=== PATIENT | female | born 1985 | race African-American/Black ===

== ENCOUNTER 2017-05-22 21:08 | Emergency (ER) | payer OTHER ==
[2017-05-23] MEDS: SOD CHLORIDE 0.9% 1,000 ML IV (00:28)
[2017-05-23 00:29] LABS: ADD MAN DIFF? NO
[2017-05-23 00:36] LABS: WHITE BLOOD COUNT 7.2 10^3/ul (4.8-10.8)
[2017-05-23 00:36] LABS: BASOPHILS % 0.3 % (0.0-2.0); HEMATOCRIT 44.4 % (37.0-47.0); HEMOGLOBIN 14.6 g/dl (12.0-16.0); LYMPHOCYTES % 28.5 % (15.0-51.0); MEAN CORPUSCULAR HGB CONC 32.9 g/dl (32.0-37.0); MEAN CORPUSCULAR VOLUME 82.1 fl (82.0-101.0); MONOCYTE # 0.4 10^3/ul (0.3-0.9); MONOCYTES % 5.7 % (0.0-11.0); NEUTROPHIL # 4.7 10^3/ul (1.6-7.5); NEUTROPHILS % 64.9 % (39.0-77.0); PLATELET COUNT 249 10^3/UL (140-415); RED BLOOD COUNT 5.41 10^6/ul (4.20-5.40); RED CELL DISTRIBUTION WIDTH 12.2 % (11.5-14.5)
[2017-05-23] MEDS: INSULIN LISPRO 100 UNIT/ML VIAL SC (00:40)
[2017-05-23 00:55] LABS: LACTIC ACID 1.3 mmol/L (0.5-2.0)
[2017-05-23 00:59] LABS: ALANINE AMINOTRANSFERASE 32 IU/L (13-69); ALBUMIN 4.8 g/dl (3.3-4.9); ALKALINE PHOSPHATASE 230 IU/L (42-121); ANION GAP 25 (8-16); ASPARTATE AMINO TRANSFERASE 18 IU/L (15-46); BILIRUBIN,INDIRECT 0.2 mg/dl (0-1.1); BILIRUBIN,TOTAL 0.2 mg/dl (0.2-1.3); BLOOD UREA NITROGEN 14 mg/dl (7-20); CALCIUM 10.6 mg/dl (8.4-10.2); CARBON DIOXIDE 20 mmol/L (21-31); CHLORIDE 88 mmol/L (97-110); CREATININE 0.85 mg/dl (0.44-1.00); POTASSIUM 4.2 mmol/L (3.5-5.1); SODIUM 129 mmol/L (135-144); TOTAL PROTEIN 8.8 g/dl (6.1-8.1)
[2017-05-23 01:19] LABS: GLUCOSE 698 mg/dl (70-220)
[2017-05-23 01:28] LABS: ADD UMIC NO; UR ASCORBIC ACID NEGATIVE (NEGATIVE); UR BILIRUBIN (Dip) NEGATIVE (NEGATIVE); UR BLOOD (Dip) NEGATIVE (NEGATIVE); UR CLARITY CLEAR (CLEAR); UR COLOR COLORLESS (YELLOW); UR GLUCOSE (Dip) 3+ mg/dL (NEGATIVE); UR KETONES (Dip) 2+ mg/dL (NEGATIVE); UR LEUKOCYTE ESTERASE (Dip) NEGATIVE Leu/ul (NEGATIVE); UR NITRITE (Dip) NEGATIVE (NEGATIVE); UR SPECIFIC GRAVITY (Dip) 1.031 (1.003-1.030); UR TOTAL PROTEIN (Dip) NEGATIVE (NEGATIVE); UR UROBILINOGEN (Dip) NEGATIVE (NEGATIVE)
[2017-05-23] MEDS: INSULIN HUMAN REGULAR 100 UNIT in SOD CHLORIDE 0.9% 99 ML IV (02:43)
[2017-05-23 04:18] LABS: LACTIC ACID 1.3 mmol/L (0.5-2.0)
[2017-05-23] MEDS: DEXTROSE 5%-0.45% NACL 1,000 ML IV (06:16)
[2017-05-23 06:40] LABS: LACTIC ACID 0.9 mmol/L (0.5-2.0)
== END 2017-05-23 07:09 | disposition short-term general hospital (02) ==
LOC: E/R 21:08
DX: E13.10 Other specified diabetes mellitus with ketoacidosis without coma (principal); R10.2 Pelvic and perineal pain
CPT/HCPCS: 36415; 71045; 80053; 81003; 82962; 83605; 84703; 85025; 96372; 96374; 99291-25

== ENCOUNTER 2017-05-27 22:13 | Emergency (ER) | payer OTHER ==
[2017-05-28 02:01] LABS: ADD MAN DIFF? NO
[2017-05-28 02:02] LABS: WHITE BLOOD COUNT 4.9 10^3/ul (4.8-10.8)
[2017-05-28 02:02] LABS: BASOPHILS % 0.4 % (0.0-2.0); HEMATOCRIT 36.8 % (37.0-47.0); LYMPHOCYTES # 2.3 10^3/ul (0.8-2.9); LYMPHOCYTES % 46.8 % (15.0-51.0); MEAN CORPUSCULAR HGB CONC 32.6 g/dl (32.0-37.0); MEAN CORPUSCULAR VOLUME 82.7 fl (82.0-101.0); MONOCYTE # 0.5 10^3/ul (0.3-0.9); MONOCYTES % 9.4 % (0.0-11.0); NEUTROPHIL # 2.1 10^3/ul (1.6-7.5); NEUTROPHILS % 43.2 % (39.0-77.0); PLATELET COUNT 267 10^3/UL (140-415); RED BLOOD COUNT 4.45 10^6/ul (4.20-5.40); RED CELL DISTRIBUTION WIDTH 12.5 % (11.5-14.5)
[2017-05-28 02:22] LABS: ALANINE AMINOTRANSFERASE 33 IU/L (13-69); ALBUMIN 3.7 g/dl (3.3-4.9); ALBUMIN/GLOBULIN RATIO 1.23; ALKALINE PHOSPHATASE 190 IU/L (42-121); ANION GAP 17 (8-16); ASPARTATE AMINO TRANSFERASE 26 IU/L (15-46); BLOOD UREA NITROGEN 9 mg/dl (7-20); CALCIUM 9.3 mg/dl (8.4-10.2); CARBON DIOXIDE 26 mmol/L (21-31); CHLORIDE 98 mmol/L (97-110); CREATININE 0.57 mg/dl (0.44-1.00); LIPASE 165 U/L (23-300); POTASSIUM 4.4 mmol/L (3.5-5.1); SODIUM 137 mmol/L (135-144); TOTAL PROTEIN 6.7 g/dl (6.1-8.1)
[2017-05-28 02:30] LABS: B-TYPE NATRIURETIC PEPTIDE 190 PG/ML (0-125)
[2017-05-28 02:46] LABS: GLUCOSE 626 mg/dl (70-220)
[2017-05-28] MEDS: INSULIN ASPART [NOVOLOG] 3 ML PEN SC (03:14)
[2017-05-28] MEDS: SOD CHLORIDE 0.9% 1,000 ML IV (03:19)
== END 2017-05-28 09:51 | disposition home or self-care (01) ==
LOC: FTE 22:13 → E/R 05-28 09:51
DX: E11.65 Type 2 diabetes mellitus with hyperglycemia (principal); F17.210 Nicotine dependence, cigarettes, uncomplicated; R06.02 Shortness of breath
CPT/HCPCS: 36415; 71045; 80053; 82962; 83690; 83880; 85025; 96372; 99284-25

== ENCOUNTER 2017-08-08 19:44 | Emergency (ER) | payer OTHER ==
[2017-08-08] MEDS: SOD CHLORIDE 0.9% 2,000 ML IV (23:28)
[2017-08-08 23:48] LABS: ADD MAN DIFF? NO
[2017-08-08 23:51] LABS: WHITE BLOOD COUNT 6.2 10^3/ul (4.8-10.8)
[2017-08-08 23:51] LABS: BASOPHILS % 0.3 % (0.0-2.0); HEMATOCRIT 39.6 % (37.0-47.0); HEMOGLOBIN 12.8 g/dl (12.0-16.0); LYMPHOCYTES # 2.5 10^3/ul (0.8-2.9); LYMPHOCYTES % 39.9 % (15.0-51.0); MEAN CORPUSCULAR HEMOGLOBIN 26.5 pg (29.0-33.0); MEAN CORPUSCULAR HGB CONC 32.3 g/dl (32.0-37.0); MEAN PLATELET VOLUME 11.6 fl (7.4-10.4); MONOCYTE # 0.4 10^3/ul (0.3-0.9); MONOCYTES % 6.9 % (0.0-11.0); NEUTROPHIL # 3.3 10^3/ul (1.6-7.5); NEUTROPHILS % 52.7 % (39.0-77.0); PLATELET COUNT 280 10^3/UL (140-415); RED BLOOD COUNT 4.83 10^6/ul (4.20-5.40); RED CELL DISTRIBUTION WIDTH 14.5 % (11.5-14.5)
[2017-08-09 00:01] LABS: UR RBC 0 /HPF (0-5); UR WBC 1 /HPF (0-5)
[2017-08-09 00:02] LABS: ADD UMIC YES; UR ASCORBIC ACID NEGATIVE (NEGATIVE); UR BILIRUBIN (Dip) NEGATIVE (NEGATIVE); UR BLOOD (Dip) 1+ mg/dL (NEGATIVE); UR CLARITY CLEAR (CLEAR); UR COLOR COLORLESS (YELLOW); UR GLUCOSE (Dip) 3+ mg/dL (NEGATIVE); UR KETONES (Dip) 1+ mg/dL (NEGATIVE); UR LEUKOCYTE ESTERASE (Dip) NEGATIVE Leu/ul (NEGATIVE); UR NITRITE (Dip) NEGATIVE (NEGATIVE); UR SPECIFIC GRAVITY (Dip) 1.025 (1.003-1.030); UR TOTAL PROTEIN (Dip) NEGATIVE (NEGATIVE); UR UROBILINOGEN (Dip) NEGATIVE (NEGATIVE)
[2017-08-09 00:14] LABS: LACTIC ACID 1.8 mmol/L (0.5-2.0)
[2017-08-09 00:16] LABS: ANION GAP 17 (8-16); BLOOD UREA NITROGEN 13 mg/dl (7-20); CALCIUM 10.2 mg/dl (8.4-10.2); CARBON DIOXIDE 24 mmol/L (21-31); CHLORIDE 98 mmol/L (97-110); CREATININE 0.48 mg/dl (0.44-1.00); POTASSIUM 4.3 mmol/L (3.5-5.1); SODIUM 135 mmol/L (135-144)
[2017-08-09 00:21] LABS: GLUCOSE 621 mg/dl (70-220)
[2017-08-09] MEDS: INSULIN LISPRO 100 UNIT/ML VIAL SC (01:11)
[2017-08-09] MEDS: LACTATED RINGER'S 1,000 ML IV (01:53)
== END 2017-08-09 03:19 | disposition home or self-care (01) ==
LOC: FTE 08-09 03:19
DX: M79.671 Pain in right foot (principal); M79.672 Pain in left foot; E11.65 Type 2 diabetes mellitus with hyperglycemia; I10 Essential (primary) hypertension
CPT/HCPCS: 36415; 80048; 81001; 82962; 83605; 85025; 96372; 99284-25

== ENCOUNTER 2017-12-24 22:20 | Emergency (ER) | payer OTHER ==
[2017-12-25 00:19] LABS: MODE ROOM AIR; MetHgb Venous 0.5 %; Sample Type Blood venous; Site VENOUS LINE; Venous COHb 0.3 %; Venous Fraction OxyHgb 48.8 %; Venous Oxygen Sat 49.2 mmHG (55.0-75.0); Venous Total Hemglobin 13.7 g/dl
[2017-12-25 00:21] LABS: ADD MAN DIFF? NO
[2017-12-25 00:23] LABS: WHITE BLOOD COUNT 5.7 10^3/ul (4.8-10.8)
[2017-12-25 00:23] LABS: BASOPHILS % 0.7 % (0.0-2.0); HEMOGLOBIN 12.7 g/dl (12.0-16.0); IMMATURE GRANS #M 0.01 10^3/ul; IMMATURE GRANS % (M) 0.2 %; LYMPHOCYTES % 35.3 % (15.0-51.0); MEAN CORPUSCULAR HEMOGLOBIN 25.1 pg (29.0-33.0); MEAN CORPUSCULAR HGB CONC 31.8 g/dl (32.0-37.0); MEAN CORPUSCULAR VOLUME 79.1 fl (82.0-101.0); MEAN PLATELET VOLUME 11.5 fl (7.4-10.4); MONOCYTE # 0.3 10^3/ul (0.3-0.9); MONOCYTES % 5.3 % (0.0-11.0); NEUTROPHIL # 3.3 10^3/ul (1.6-7.5); NEUTROPHILS % 58.5 % (39.0-77.0); PLATELET COUNT 288 10^3/UL (140-415); RED BLOOD COUNT 5.06 10^6/ul (4.20-5.40); RED CELL DISTRIBUTION WIDTH 14.5 % (11.5-14.5)
[2017-12-25 00:28] LABS: ADD UMIC NO; UR ASCORBIC ACID NEGATIVE (NEGATIVE); UR BILIRUBIN (Dip) NEGATIVE (NEGATIVE); UR BLOOD (Dip) NEGATIVE (NEGATIVE); UR CLARITY CLEAR (CLEAR); UR COLOR COLORLESS (YELLOW); UR GLUCOSE (Dip) 3+ mg/dL (NEGATIVE); UR KETONES (Dip) 1+ mg/dL (NEGATIVE); UR LEUKOCYTE ESTERASE (Dip) NEGATIVE Leu/ul (NEGATIVE); UR NITRITE (Dip) NEGATIVE (NEGATIVE); UR SPECIFIC GRAVITY (Dip) 1.027 (1.003-1.030); UR TOTAL PROTEIN (Dip) NEGATIVE (NEGATIVE); UR UROBILINOGEN (Dip) NEGATIVE (NEGATIVE)
[2017-12-25] MEDS: SOD CHLORIDE 0.9% 820 ML IV (00:30)
[2017-12-25] MEDS: KETOROLAC 15 MG INJ IV (00:30)
[2017-12-25 00:55] LABS: ANION GAP 17 (8-16); BLOOD UREA NITROGEN 9 mg/dl (7-20); CALCIUM 10.2 mg/dl (8.4-10.2); CARBON DIOXIDE 26 mmol/L (21-31); CHLORIDE 95 mmol/L (97-110); MAGNESIUM 1.6 mg/dl (1.7-2.5); PHOSPHORUS 4.4 mg/dl (2.5-4.9); POTASSIUM 4.5 mmol/L (3.5-5.1); SODIUM 133 mmol/L (135-144)
[2017-12-26 01:57] LABS: GLUCOSE 751 mg/dl (70-220)
== END 2017-12-25 02:20 | disposition home or self-care (01) ==
LOC: E/R 22:20
DX: E11.65 Type 2 diabetes mellitus with hyperglycemia (principal); M79.1 Myalgia; I10 Essential (primary) hypertension
CPT/HCPCS: 36415; 80048; 81003; 81025; 82803; 82962; 83735; 84100; 85025; 96361; 96374; 99284-25